=== PATIENT | female | born 1945 | race Caucasian/White ===

== ENCOUNTER → 2018-01-01 | Outpatient (CLI) | payer MEDICARE | LOC: M RAD 09:03 | DX: M47.817 Spondylosis without myelopathy or radiculopathy, lumbosacral region (principal); M12.88 Other specific arthropathies, not elsewhere classified, other specified site; M54.42 Lumbago with sciatica, left side; M35.3 Polymyalgia rheumatica; M41.9 Scoliosis, unspecified | CPT/HCPCS: 72148 ==